=== PATIENT | male | born 1995 | race Caucasian/White ===

== ENCOUNTER 2016-11-07 22:03 | Emergency (ER) | payer MEDICARE, MEDICAID ==
[2016-11-07 22:54] LABS: BASOPHILS 0.2 % (0.0-2.0); EOSINOPHILS 0.5 % (0-7); HEMATOCRIT 41.5 % (42.0-54.0); HEMOGLOBIN 13.5 g/dL (13.5-17.5); LYMPHOCYTES 30.6 % (15-50); MCHC 32.5 g/dL (31.0-37.0); MCV 89.2 fL (80.0-100.0); MEAN PLATELET VOLUME 9.4 fL (7.4-10.4); MONOCYTES 12.7 % (2-11); PLATELET COUNT 233 10x3/uL (130-400); RBC 4.65 10x6/uL (4.20-6.10); RDW 14.2 % (11.5-14.5); WBC 9.1 10x3/uL (4.8-10.8)
[2016-11-07 23:08] LABS: ALBUMIN 3.7 g/dL (3.4-5.0); ALKALINE PHOSPHATASE 67 U/L (46-116); ALT (SGPT) 41 U/L (10-68); BILIRUBIN - TOTAL 0.52 mg/dL (0.2-1.3); CALC OSMOLALITY 286 mosm/kg (275-300); CALCIUM 8.9 mg/dL (8.5-10.1); CARBON DIOXIDE 27.1 mmol/L (21.0-32.0); CHLORIDE - SERUM 106 mmol/L (98-107); GLUCOSE 83 mg/dL (74-106); POTASSIUM - SERUM 3.8 mmol/L (3.5-5.1); PROTEIN - SERUM 7.4 g/dL (6.4-8.2); SODIUM 144 mmol/L (136-145); UREA NITROGEN 16 mg/dL (7-18); eGFR NON AFRICAN AMERICAN > 90 mL/min (90-120)
[2016-11-07 23:38] LABS: APPEARANCE CLEAR (CLEAR); BILIRUBIN NEGATIVE (NEGATIVE); COLOR YELLOW (YELLOW); GLUCOSE NEGATIVE (NEGATIVE); KETONE NEGATIVE (NEGATIVE); LEUKOCYTE ESTERASE NEGATIVE (NEGATIVE); NITRITE NEGATIVE (NEGATIVE); PROTEIN NEGATIVE (NEGATIVE); UROBILINOGEN NORMAL (NORMAL)
[2016-11-07 23:42] LABS: UDS - AMPHET NEGATIVE QUAL (NEGATIVE); UDS - BARB NEGATIVE QUAL (NEGATIVE); UDS - BENZO NEGATIVE QUAL (NEGATIVE); UDS - COCAINE NEGATIVE QUAL (NEGATIVE); UDS - METH NEGATIVE QUAL (NEGATIVE); UDS - OPIATE NEGATIVE QUAL (NEGATIVE); UDS - PCP NEGATIVE QUAL (NEGATIVE); UDS - THC NEGATIVE QUAL (NEGATIVE)
== END 2016-11-07 23:50 | disposition home or self-care (01) ==
LOC: D.ER 22:03
PROVIDERS: Family Medicine
DX: R42 Dizziness and giddiness (principal); M10.9 Gout, unspecified; I10 Essential (primary) hypertension

== ENCOUNTER 2016-11-17 21:11 | Emergency (ER) | payer MEDICARE, MEDICAID ==
[2016-11-17 22:42] LABS: BASOPHILS 0.1 % (0.0-2.0); HEMOGLOBIN 13.1 g/dL (13.5-17.5); IMMATURE GRANULOCYTES 0.1 % (0-5); LYMPHOCYTES 32.9 % (15-50); MCH 28.7 pg (26.0-34.0); MCV 89.9 fL (80.0-100.0); MEAN PLATELET VOLUME 9.2 fL (7.4-10.4); MONOCYTES 10.3 % (2-11); NEUTROPHILS 55.6 % (40-80); PLATELET COUNT 228 10x3/uL (130-400); RBC 4.56 10x6/uL (4.20-6.10); RDW 13.7 % (11.5-14.5); WBC 7.9 10x3/uL (4.8-10.8)
[2016-11-17 23:01] LABS: ALBUMIN 3.8 g/dL (3.4-5.0); ALKALINE PHOSPHATASE 61 U/L (46-116); ALT (SGPT) 29 U/L (10-68); AMYLASE - SERUM 64 U/L (25-115); CALC OSMOLALITY 282 mosm/kg (275-300); CALCIUM 8.9 mg/dL (8.5-10.1); CARBON DIOXIDE 26.4 mmol/L (21.0-32.0); CHLORIDE - SERUM 106 mmol/L (98-107); GLUCOSE 86 mg/dL (74-106); LIPASE 135 U/L (73-393); POTASSIUM - SERUM 3.6 mmol/L (3.5-5.1); PROTEIN - SERUM 6.9 g/dL (6.4-8.2); SODIUM 143 mmol/L (136-145); UREA NITROGEN 11 mg/dL (7-18); eGFR NON AFRICAN AMERICAN > 90 mL/min (90-120)
== END 2016-11-17 23:26 | disposition home or self-care (01) ==
LOC: D.ER 21:11
PROVIDERS: Physician Assistant
DX: R10.11 Right upper quadrant pain (principal); I10 Essential (primary) hypertension

== ENCOUNTER 2016-11-26 18:50 | Emergency (ER) | payer MEDICARE, MEDICAID | END 2016-11-26 21:30 | disposition home or self-care (01) | LOC: D.ER 18:50 | DX: R51 Headache (principal); I10 Essential (primary) hypertension ==

== ENCOUNTER 2016-12-06 20:25 | Emergency (ER) | payer MEDICARE, MEDICAID ==
[2016-12-06 21:55] LABS: BASOPHILS 0.2 % (0.0-2.0); EOSINOPHILS 0.9 % (0-7); HEMOGLOBIN 12.5 g/dL (13.5-17.5); IMMATURE GRANULOCYTES 0.2 % (0-5); MCH 28.4 pg (26.0-34.0); MCHC 32.1 g/dL (31.0-37.0); MCV 88.6 fL (80.0-100.0); MEAN PLATELET VOLUME 9.4 fL (7.4-10.4); MONOCYTES 7.1 % (2-11); NEUTROPHILS 62.6 % (40-80); PLATELET COUNT 238 10x3/uL (130-400); RDW 13.3 % (11.5-14.5); WBC 12.8 10x3/uL (4.8-10.8)
[2016-12-06 22:11] LABS: ALBUMIN 3.5 g/dL (3.4-5.0); ALKALINE PHOSPHATASE 66 U/L (46-116); ALT (SGPT) 40 U/L (10-68); BILIRUBIN - TOTAL 0.24 mg/dL (0.2-1.3); CALC OSMOLALITY 280 mosm/kg (275-300); CALCIUM 8.7 mg/dL (8.5-10.1); CARBON DIOXIDE 29.4 mmol/L (21.0-32.0); CHLORIDE - SERUM 107 mmol/L (98-107); CREATININE - SERUM 0.9 mg/dL (0.6-1.3); GLUCOSE 91 mg/dL (74-106); POTASSIUM - SERUM 3.6 mmol/L (3.5-5.1); PROTEIN - SERUM 6.7 g/dL (6.4-8.2); SODIUM 141 mmol/L (136-145); UREA NITROGEN 12 mg/dL (7-18); eGFR NON AFRICAN AMERICAN > 90 mL/min (90-120)
[2016-12-06 22:22] LABS: CHOL - HDL RATIO 2.7 ratio (2.3-4.9); CHOLESTEROL, TOTAL 91 mg/dL (0-200); CKMB 0.7 U/L (0.0-3.6); CREATINE KINASE 124 UL (21-232); HDL CHOLESTEROL 34 mg/dL (32-96); LDL CHOLESTEROL 26 mg/dL (0-100); LDL-HDL RATIO 0.8 ratio (1.5-3.5); TRIGLYCERIDE 158 mg/dL (30-200)
[2016-12-06 22:30] LABS: TROPONIN-I < 0.017 ng/mL (0.000-0.060)
== END 2016-12-06 23:36 | disposition home or self-care (01) ==
LOC: D.ER 20:25
PROVIDERS: Emergency Medicine
DX: S29.011A Strain of muscle and tendon of front wall of thorax, initial encounter (principal); X50.0XXA Overexertion from strenuous movement or load, initial encounter; Y93.B3 Activity, free weights; Y92.89 Other specified places as the place of occurrence of the external cause; M94.0 Chondrocostal junction syndrome [Tietze]; F17.200 Nicotine dependence, unspecified, uncomplicated; I10 Essential (primary) hypertension

== ENCOUNTER 2016-12-16 21:35 | Emergency (ER) | payer MEDICARE, MEDICAID ==
[2016-12-16 22:36] LABS: BASOPHILS 0.2 % (0.0-2.0); EOSINOPHILS 1.2 % (0-7); HEMOGLOBIN 14.2 g/dL (13.5-17.5); IMMATURE GRANULOCYTES 0.2 % (0-5); LYMPHOCYTES 33.3 % (15-50); MCH 28.8 pg (26.0-34.0); MCHC 32.3 g/dL (31.0-37.0); MCV 89.2 fL (80.0-100.0); MEAN PLATELET VOLUME 9.6 fL (7.4-10.4); MONOCYTES 7.4 % (2-11); NEUTROPHILS 57.7 % (40-80); PLATELET COUNT 274 10x3/uL (130-400); RBC 4.93 10x6/uL (4.20-6.10); RDW 13.6 % (11.5-14.5); WBC 11.7 10x3/uL (4.8-10.8)
[2016-12-16 22:50] LABS: ALKALINE PHOSPHATASE 71 U/L (46-116); ALT (SGPT) 38 U/L (10-68); BILIRUBIN - TOTAL 0.27 mg/dL (0.2-1.3); CALC OSMOLALITY 284 mosm/kg (275-300); CALCIUM 8.8 mg/dL (8.5-10.1); CARBON DIOXIDE 30.7 mmol/L (21.0-32.0); CHLORIDE - SERUM 106 mmol/L (98-107); CREATININE - SERUM 0.9 mg/dL (0.6-1.3); GLUCOSE 85 mg/dL (74-106); POTASSIUM - SERUM 4.1 mmol/L (3.5-5.1); PROTEIN - SERUM 7.6 g/dL (6.4-8.2); SODIUM 144 mmol/L (136-145); UREA NITROGEN 10 mg/dL (7-18); eGFR NON AFRICAN AMERICAN > 90 mL/min (90-120)
[2016-12-16 23:01] LABS: THYROID STIMULATING HORMONE 1.77 uIU/mL (0.36-3.74)
== END 2016-12-16 23:20 | disposition home or self-care (01) ==
LOC: D.ER 21:35
PROVIDERS: Family Medicine
DX: R53.1 Weakness (principal); I10 Essential (primary) hypertension

== ENCOUNTER 2016-12-30 00:51 | Emergency (ER) | payer MEDICARE, MEDICAID | END 2016-12-30 01:45 | disposition home or self-care (01) | LOC: D.ER 00:51 | DX: R45.851 Suicidal ideations (principal); F32.9 Major depressive disorder, single episode, unspecified; M94.0 Chondrocostal junction syndrome [Tietze]; I10 Essential (primary) hypertension ==